=== PATIENT | male | born 1975 | race Caucasian/White ===

== ENCOUNTER 2017-03-06 06:42 | Day surgery (SDC) | payer MEDICAID ==
[~2017-03-06 06:42] MED LIST: Ampicillin 1 GM in Sodium Chloride 0.9% 50 ML IV ONE; Lactated Ringers 1,000 ML IV SCH
[2017-03-06] MEDS ORDERED: Ampicillin 1 GM in Sodium Chloride 0.9% 50 ML IV ONE ×2 (07:15→07:20)
--- NOTE | 2017-03-06 07:22 | PCM.PREANE ---
Preanesthetic Assessment - Anesthesia/Transfusion/Family Hx Anesthesia History: Prior Anesthesia Without Reaction Family History of Anesthesia Reaction: No Transfusion History: No Prior Transfusion(s) - Review of Systems General: No Symptoms Pulmonary: No Symptoms Cardiovascular: No Symptoms Gastrointestinal: No symptoms Neurological: Pre-Existing Deficit - Physical Assessment NPO Status Date: 03/04/17 Height: 1.73 m Weight: 90.718 kg ASA Class: 2 Mental Status: Alert & Oriented x3 Airway Class: Mallampati = 2 Dentition: Reports: Broken Tooth/Teeth ROM/Head Extension: Full Lungs: Clear to auscultation, Normal respiratory effort Cardiovascular: Regular Rate, Regular Rhythm - Allergies Allergies/Adverse Reactions: Allergies Allergy/AdvReac Type Severity Reaction Status Date / Time No Known Allergies Allergy Verified 05/18/16 12:28 - Anesthesia Plan Pre-Op Medication Ordered: Other (ampicillin per oral surgeon) - Acknowledgements Anesthesia Type Planned: General Anesthesia Pt an Appropriate Candidate for the Planned Anesthesia: Yes Alternatives and Risks of Anesthesia Discussed w Pt/Guardian: Yes Pt/Guardian Understands and Agrees with Anesthesia Plan: Yes Additional Comments: PMH: 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 PreAnesthesia Questionnaire HEENT History: Reports: Other (See Below) Other HEENT History: left side visual field cut due to stroke Cardiovascular History: Reports: Blood Clots/VTE/DVT Other Cardiovascular History: "I have a hole in my heart", hx superficial blood clot to left arm, hx DVT to left leg Respiratory History: Reports: PE Gastrointestinal History: Reports: None Genitourinary History: Reports: None Musculoskeletal History: Reports: Other (See Below) Other Musculoskeletal History: left sided hemiparesis Neurological History: Reports: CVA Psychiatric History: Reports: Depression Endocrine/Metabolic History: Reports: None - Infectious Disease History Infectious Disease History: Reports: None - Past Surgical History Head Surgeries/Procedures: Reports: Craniotomy HEENT Surgical History: Reports: None Cardiovascular Surgical History: Other Cardiovascular Surgeries/Procedures: had placement of IVC filter and later removal of filter - SUBSTANCE USE Smoking Status *Q: Current Every Day Smoker Tobacco Use Within Last Twelve Months: Cigarettes Days Per Week of Alcohol Use: 7 Number of Drinks Per Day: 10 Total Drinks Per Week: 70 Recreational Drug Use History: Yes Recreational Drug Type: - HOME MEDS Home Medications: Home Meds Amitriptyline [Elavil] 10 mg PO BEDTIME 03/04/17 [History] Apixaban [Eliquis] 5 mg PO BID 03/04/17 [History] Aspirin [Louise Aspirin] 81 mg PO DAILY 03/04/17 [History] Baclofen 2 tab PO BEDTIME 03/04/17 [History] Docusate Sodium [Colace] 100 mg PO BID 03/04/17 [History] Melatonin 6 mg PO BEDTIME 03/04/17 [History] Multivitamin [Multivitamins] 1 tab PO DAILY 03/04/17 [History] Sertraline HCl 100 mg PO DAILY 03/04/17 [History] traZODone HCl [Trazodone HCl] 50 mg PO BEDTIME PRN 03/04/17 [History] - CURRENT (IN HOUSE) MEDS Current Meds: Current Medications Lactated Ringer's (Ringers, Lactated) 1,000 mls @ 125 mls/hr IV ASD[facility]RECTED [facility] Last Admin: 03/06/17 07:14 Dose: 125 mls/hr Ampicillin Sodium 1 gm/ Sodium (Chloride) 50 mls @ 100 mls/hr IV ONETIME ONE Stop: 03/06/17 07:49 Discontinued Medications Ampicillin Sodium 1 gm/ Sodium (Chloride) 50 mls @ 100 mls/hr IV ONETIME ONE Stop: 03/06/17 05:29 Lactated Ringer's (Ringers, Lactated) 1,000 mls @ 100 mls/hr IV ASDIRECTED [facility] Ampicillin Sodium 1 gm/ Sodium (Chloride) 50 mls @ 100 mls/hr IV ONETIME ONE Stop: 03/06/17 07:44
[2017-03-06] MEDS ORDERED: Rocuronium 10 MG/ML 10 ML Syringe ONE (07:23)
[2017-03-06] MEDS ORDERED: Neostigmine Methylsulfate 1 MG/ML 5 ML Syringe ONE (07:23)
[2017-03-06] MEDS ORDERED: Propofol 200 MG/20 ML SDV ONE (07:23)
[2017-03-06] MEDS ORDERED: Ondansetron 4 MG/2 ML SDV ONE (07:23)
[2017-03-06] MEDS ORDERED: Lidocaine 2% 5 ML SDV ONE (07:23)
[2017-03-06] MEDS ORDERED: Midazolam 1 MG/ML 2 ML SDV ONE (07:23)
[2017-03-06] MEDS ORDERED: fentaNYL 250 MCG/5 ML SDV ONE (07:23)
[2017-03-06] MEDS ORDERED: Lidocaine 2% with EPINEPHrine 1:100,000 20 ML MDV ONE (07:50)
[2017-03-06] MEDS ORDERED: fentaNYL 100 MCG/2 ML SDV ONE ×2 (08:42→09:00)
[2017-03-06] MEDS ORDERED: Labetalol 5 MG/ML 5 ML Syringe ONE (08:51)
--- NOTE | 2017-03-06 11:23 | PCM.POSTAN ---
POST ANESTHESIA ASSESSMENT - MENTAL STATUS Mental Status: alert, oriented - RESPIRATORY Respiratory Status: respiratory rate WNL, airway patent, O2 saturation stable - CARDIOVASCULAR CV Status: pulse rate WNL, blood pressure stable - GASTROINTESTINAL GI Status: no symptoms - POST OP HYDRATION Hydration Status: adequate & stable
--- NOTE | 2017-03-06 11:24 | PCM48HPAN ---
Post Anesthesia Note - EVALUATION WITHIN 48HRS OF ANESTHETIC Vital Signs in Normal Range: Yes Patient Participated in Evaluation: Yes Respiratory Function Stable: Yes Airway Patent: Yes Cardiovascular Function Stable: Yes Hydration Status Stable: Yes Pain Control Satisfactory: Yes Nausea and Vomiting Control Satisfactory: Yes Mental Status Recovered: Yes
[2017-03-06 12:07] VITALS: BP 138/90
--- NOTE | 2017-03-06 22:42 | OR ---
SURGEON: Derick Lopez DATE OF PROCEDURE: 03/06/2017 PREOPERATIVE DIAGNOSIS: Multiple carious teeth, #1, 8, 11, 12, 14, 19, 20, 30, and 31. POSTOPERATIVE DIAGNOSIS: Multiple carious teeth, #1, 8, 11, 12, 14, 19, 20, 30, and 31. PROCEDURE: Under general anesthesia, surgical extractions of teeth #1, 8, 11, 12, 14, 19, 20, 30, and 31. COMPLICATIONS: None. RN ADVANCED: Samara. ESTIMATED BLOOD LOSS: 20 mL of blood. ANESTHESIA: General anesthesia via nasotracheal intubation without any complications. MEDICATIONS: Medications given to this patient: A gram of ampicillin non destructive testing inspector to the OR and 8 mg of Decadron. Local anesthesia, we used 6 Carpules of lidocaine 2% 1:100,000 with epinephrine. JUSTIFICATION FOR THIS PROCEDURE: Chris Mcnair is a 41-year-old gentleman who had a couple of months ago a severe cerebrovascular accident, leaving him with some body impediments. He is able to walk with assistance, but he had a craniotomy done and recently the reattached part of the cranium back into the skull. The patient was referred to me for evaluation and extractions of multiple tooth, but due to his medical condition, the plan was to be done in the hospital. Medical clearance was obtained for this procedure. A consent form was obtained to have this procedure done as well and he was a schedule as an outpatient here in [facility] to be done. All risks and benefits were discussed. Consent form was signed and obtained before surgery. SURGICAL PROCEDURE IN DETAIL: The patient was taken down to the operating room where he was prepped and draped in a sterile fashion for an drafter directional survey procedure. He was nasotracheally intubated without any complications. A time-out procedure was done. An oropharyngeal airway pack was used to prevent any foreign objects or instrument going down his throat. A mouth prop was used and then lidocaine 2% 1:100,000 with epinephrine was utilized to get this patient anesthetized. We waited approximately 10 minutes until the anesthesia take effect and we started the surgery in the area of tooth #1 and #8. With a 15-blade, we made a circular incision around tooth #1. With a #9 periosteal elevator, we reflected a mucoperiosteal flap. Tooth was carefully luxated with a straight elevator and then removed with a 150 universal forceps. Surgical site was irrigated with normal saline solution and then we took sutures with 3-0 chromic in an interrupted fashion. We went to the area of tooth #8. With a #9 periosteal elevator, we reflected a mucoperiosteal flap. Tooth was luxated with a straight elevator, then removed with a 150 universal forceps. Surgical site was irrigated with normal saline solution and then sutures were taken with 3-0 chromic in interrupted fashion. We went to the areas of teeth #11 and #12. With a 15-blade, we made a circular incision around teeth #11 and #12. With a #9 periosteal elevator, we reflected a mucoperiosteal flap. Teeth were luxated with a straight elevator, then removed with a 150 universal forceps. Surgical site was irrigated with normal saline solution and then we took sutures with 3-0 chromic in interrupted fashion. We went to the area of tooth #14. With a 15- blade, we made a circular incision around tooth #11. With a #9 periosteal elevator, we reflected a mucoperiosteal flap. Tooth was carefully luxated with a straight elevator, then removed with a 150 universal forceps. Surgical site was irrigated with normal saline solution and then we took sutures with 3-0 chromic in interrupted fashion. We went to area of tooth #19. With a 15-blade, we made a crestal incision in the area of tooth #19. With a #9 periosteal elevator, we reflected a mucoperiosteal flap. Using a surgical nate under constant irrigation with normal saline solution, removed bone that was covering the root fragment. The root fragment was identified and it was removed with root tip elevators. Surgical site was irrigated with normal saline solution and then we took sutures with 3-0 chromic in an interrupted fashion. We went to the area of tooth #20. With a 15-blade, we made a circular incision around tooth #20. With a #9 periosteal elevator, we reflected a mucoperiosteal flap. Tooth was carefully luxated with a straight elevator, then removed with a 151 universal forceps. Surgical site was irrigated with normal saline solution and then we took sutures with 3-0 chromic in an interrupted fashion. We went to the areas of tooth #30 and #31. With a 15-blade, we made circular incisions around teeth #30 and #31. With a #9 periosteal elevator, we reflected a mucoperiosteal flap. Teeth were luxated with a straight elevator and then removed with a 23 forceps. We had to section the roots because the roots were very elongated, so using a 557 surgical nate under constant irrigation with normal saline solution, we sectioned teeth #30 and #31 and the roots were removed with root tip elevators without any complications. Surgical sites were irrigated with normal saline solution. With a bone file instrument, we smoothed all the bone surfaces and then we took sutures with 3-0 in interrupting fashion. We packed the surgical sites with 4x4 moist gauze. We removed the oropharyngeal throat pack. The patient was turned back to the Anesthesia Team. The patient was extubated without any complications. He was transported to Anesthesia Recovery Unit and he was left in the hands of the Anesthesia Recovery Unit nurse in a stable condition. There were no complications for surgery. The patient tolerated the procedure well. There were no complications for this surgical procedure. Physician responsible for this operative report is Derick Lopez DDS. BETSY NAIDU /[id number]
== END 2017-03-06 11:38 | disposition home or self-care (01) ==
LOC: MW.SDS 06:42
PROVIDERS: ATTEND Dentist Oral and Maxillofacial Surgery
PROC: 0CDXXZ1 Extraction of Lower Tooth, Multiple, External Approach (ICD-10-PCS; principal; 2017-03-06)
PROC: 0CDWXZ1 Extraction of Upper Tooth, Multiple, External Approach (ICD-10-PCS; 2017-03-06)
DX: K02.9 Dental caries, unspecified (principal); I69.354 Hemiplegia and hemiparesis following cerebral infarction affecting left non-dominant side; Q21.1 Atrial septal defect; D68.59 Other primary thrombophilia; F32.9 Major depressive disorder, single episode, unspecified; F17.210 Nicotine dependence, cigarettes, uncomplicated; Z86.718 Personal history of other venous thrombosis and embolism; Z86.711 Personal history of pulmonary embolism; Z98.890 Other specified postprocedural states; Z79.02 Long term (current) use of antithrombotics/antiplatelets; Z79.82 Long term (current) use of aspirin; Z79.899 Other long term (current) drug therapy
CPT/HCPCS: 41899; A9270; J0290; J2250; J2405; J3010; J7050; J7120; 00170; 88300; J2704